=== PATIENT | female | born 1965 | race Caucasian/White ===

== ENCOUNTER 2019-12-11 12:05 | Emergency (ER) | payer BC, OTHER ==
[2019-12-11 12:18] VITALS: RESP 20; TEMP 97.9
--- NOTE | 2019-12-11 12:51 | ED ---
Lower Extremity Injury HPI - General Chief Complaint: Extremity Injury, Lower Stated Complaint: fall, rt ankle injury Time Seen by Provider: 12/11/19 12:18 Source: patient, RN notes reviewed Mode of arrival: wheelchair Limitations: no limitations - History of Present Illness Initial Comments: 54-year-old female presents emergency department with chief complaint of right ankle injury. Patient states that she went to get up from the couch states that she twisted her ankle and fell. Patient states she has right ankle pain, swelling and bruising. Patient states his happened once that she's had no improvement of symptoms. Patient had multiple injuries upper extremity secondary falls. She states that she did not have any head injury no loss consc ious. Patient offers no other associated complaints. - Related Data Previous Rx's Medication Instructions Recorded Ibuprofen [Motrin] 600 mg PO Q8HR PRN #20 tab 12/11/19 Allergies Allergy/AdvReac Type Severity Reaction Status Date / Time No Known Allergies Allergy Verified 12/11/19 12:17 Review of Systems ROS Statement: Those systems with pertinent positive or pertinent negative responses have been documented in the HPI. ROS Other: All systems not noted in ROS Statement are negative. Past Medical History Past Medical History: Hypertension Additional Past Medical History / Comment(s): migraines, [facility]I History of Any Multi-Drug Resistant Organisms: None Reported Past Surgical History: Breast Surgery, Section, Orthopedic Surgery Additional Past Surgical History / Comment(s): lt knee, lt shoulder, lt carpal tunnel Past Psychological History: Anxiety, Depression Smoking Status: Former smoker Past Alcohol Use History: None Reported Past Drug Use History: None Reported General Exam Limitations: no limitations General appearance: alert, in no apparent distress Head exam: Present: atraumatic, normocephalic, normal inspection Respiratory exam: Present: normal lung sounds bilaterally. Absent: respiratory distress, wheezes, rales, rhonchi, stridor Cardiovascular Exam: Present: regular rate, normal rhythm, normal heart sounds. Absent: systolic murmur, diastolic murmur, rubs, gallop, clicks Extremities exam: Present: other (right ankle there is moderate swelling, ecchymosis and tenderness to lateral malleoli region, neurovascular intact there is no proximal tib-fib tenderness, no distal foot tenderness.) Neurological exam: Present: alert, oriented X3 Skin exam: Present: warm, dry, intact, normal color. Absent: rash Course Vital Signs 12/11/19 12:13 Temperature 97.9 F Pulse Rate 91 Respiratory 20 Rate Blood Pressure 127/78 O2 Sat by Pulse 100 Oximetry Medical Decision Making - Medical Decision Making X-rays were reviewed of the right ankle which were negative for acute fracture. Patient is right ankle sprain. Patient be placed in a stirrup Aircast and will follow-up with orthopedics. Discharge instructions Disposition Clinical Impression: Right ankle sprain Disposition: TRANSFER TO PSYCH HOSP/UNIT Condition: Stable Instructions (If sedation given, give patient instructions): Ankle Sprain (ED) Additional Instructions: Please return to the Emergency Department if symptoms worsen or any other concerns. Prescriptions: Ibuprofen [Motrin] 600 mg PO Q8HR PRN #20 tab PRN Reason: Pain Is patient prescribed a controlled substance at d/c from ED?: No Referrals: Cindy Mandujano MD [Primary Care Provider] - 1-2 days Agustin Velásquez MD [Medical Doctor] - 1-2 days Time of Disposition: 13:06
--- NOTE | 2019-12-11 13:01 | XR ---
Right ankle HISTORY: Pain and swelling 3 views of the right ankle There is soft tissue swelling present. Bone mineralization, joint spaces and alignment are maintained . There is a plantar calcaneal spur. IMPRESSION: No fracture or dislocation. Soft tissue swelling.
[2019-12-11 13:29] VITALS: BP 125/87; PULSE 90
== END 2019-12-11 13:29 ==
LOC: EC 12:05
DX: S93.401A Sprain of unspecified ligament of right ankle, initial encounter (principal); I10 Essential (primary) hypertension; Z87.891 Personal history of nicotine dependence; Z98.890 Other specified postprocedural states; W01.0XXA Fall on same level from slipping, tripping and stumbling without subsequent striking against object, initial encounter; Y93.89 Activity, other specified; Y92.009 Unspecified place in unspecified non-institutional (private) residence as the place of occurrence of the external cause
CPT/HCPCS: 29515; 99283; 73610; L4350